=== PATIENT | female | born 1985 | race Hispanic/Latino ===

== ENCOUNTER 2021-01-19 05:30 | Emergency (ER) | payer SELFPAY ==
[~2021-01-19] VITALS: Ht 157.5 cm; Wt 145.9 kg
[2021-01-19] MEDS ORDERED: SODIUM CHLORIDE 0.9% 1000ML 1,000 ML IV STA (06:03)
[2021-01-19] MEDS ORDERED: SODIUM CHLORIDE 0.9% 1000ML 1,000 ML ONE (06:28)
[2021-01-19] MEDS ORDERED: DICYCLOMINE HCL10 MG PO (07:13)
== END 2021-01-19 07:27 | disposition home or self-care (01) ==
LOC: FSED 05:46
DX: R53.1 Weakness (principal); R06.02 Shortness of breath; R19.7 Diarrhea, unspecified; R11.0 Nausea
CPT/HCPCS: 80048; 80076; 81003; 81025; 85025; 99283; J7030

== ENCOUNTER 2022-12-11 17:02 | Emergency (ER) | payer OTHER ==
[~2022-12-11] VITALS: Ht 157.5 cm; Wt 145.6 kg
[~2022-12-11 17:02] MED LIST: DICYCLOMINE HCL10 MG PO
[2022-12-11] MEDS ORDERED: KETOROLAC TROMETHAMINE 30 MG/ML VIAL IV STA (19:32)
== END 2022-12-11 20:19 | disposition home or self-care (01) ==
LOC: FSED 17:23
DX: M54.12 Radiculopathy, cervical region (principal); R03.0 Elevated blood-pressure reading, without diagnosis of hypertension; F41.0 Panic disorder [episodic paroxysmal anxiety]; E66.01 Morbid (severe) obesity due to excess calories; Z68.43 Body mass index [BMI] 50.0-59.9, adult; R94.31 Abnormal electrocardiogram [ECG] [EKG]
CPT/HCPCS: 81003; 81025; 93005; 99283; J1885

== ENCOUNTER 2023-11-14 20:53 | Emergency (ER) | payer BC, OTHER ==
[~2023-11-14] VITALS: Ht 157.5 cm; Wt 145.6 kg
[2023-11-14 21:00] VITALS: O2SAT 100
[2023-11-14 21:53] LABS: CLARITY,URINE SL CLOUDY (CLEAR); COLOR,URINE YELLOW (YELLOW); GLUCOSE, URINE NEGATIVE (NEGATIVE); LEUKOCYTE ESTERASE ,URINE TRACE (NEGATIVE); NITRITE,URINE NEGATIVE (NEGATIVE); PH,URINE 6 (5 - 7); PROTEIN,URINE DIPSTICK NEGATIVE (NEGATIVE)
[2023-11-14 21:54] LABS: BILIRUBIN,URINE NEGATIVE (NEGATIVE); KETONES,URINE NEGATIVE (NEGATIVE); URINE UROBILINOGEN 0.2 mg/dL (0.2 - 1)
[2023-11-14 22:04] LABS: BACTERIA,URINE MANY /HPF; EPITHELIAL CELLS,URINE MANY /LPF
[2023-11-14] MEDS: KETOROLAC TROMETHAMINE 60 MG/2 ML VIAL IM ONE (22:56)
[2023-11-14] MEDS ORDERED: PREDNISONE20 MG PO (23:31)
[2023-11-14] MEDS ORDERED: KETOROLAC TROME10 MG PO (23:31)
== END 2023-11-15 | disposition home or self-care (01) ==
LOC: ER 21:03
DX: M54.41 Lumbago with sciatica, right side (principal); E66.01 Morbid (severe) obesity due to excess calories; Z68.43 Body mass index [BMI] 50.0-59.9, adult; K76.0 Fatty (change of) liver, not elsewhere classified; K57.30 Diverticulosis of large intestine without perforation or abscess without bleeding; N83.202 Unspecified ovarian cyst, left side
CPT/HCPCS: 74176; 81001; 81025; 99283; J1885